=== PATIENT | male | born 1970 ===

== ENCOUNTER 2025-03-22 08:09 | Outpatient (CLI) | payer OTHER ==
[2025-03-22] MEDS ORDERED: COZAAR25 MG (09:32)
[2025-03-22] MEDS ORDERED: AMLODIPINE-OLM1 EAC2 (09:32)
[2025-03-22] MEDS ORDERED: EZALLOR SPRINKL20 MG (09:33)
[2025-03-22] MEDS ORDERED: SYNTHROID125 MCG PO (09:33)
[2025-03-22 09:44] LABS: BASO % 1.3 % (0.1-1.2); EOS # 0.17 (0.04-0.54); EOS % 4.3 % (0.7-7.0); HEMATOCRIT 43.3 % (40.1-51.0); HEMOGLOBIN 14.8 g/dL (13.7-17.5); LYMPH # 1.59 (1.18-3.74); LYMPH % 39.8 % (19.3-53.1); MEAN CORPUSCULAR HEMOGLOBIN 28.8 pg (25.6-32.2); MONO # 0.41 (0.24-0.82); MONO % 10.3 % (4.7-12.5); NEUT # 1.76 (1.56-6.13); PLATELET COUNT 172 K/uL (163-369); RED BLOOD COUNT 5.14 M/uL (4.63-6.08); RED CELL DISTRIBUTION WIDTH 12.6 % (11.6-14.4)
[2025-03-22 09:56] LABS: PH,URINE 6.5 (5.0-8.0); URINE APPEARANCE Clear; URINE BILIRRUBIN Negative (NEGATIVE); URINE BLOOD Negative; URINE COLOR Yellow; URINE GLUCOSE Negative (NEGATIVE); URINE KETONE Negative (NEGATIVE); URINE LEUKOCYTE Negative; URINE NITRATE Negative; URINE PROTEIN Negative (NEGATIVE); URINE UROBILINOGEN 0.2 E.U./dl
[2025-03-22 10:00] LABS: URINE BACTERIA 4.8 uL (0.0-1933)
[2025-03-22 10:31] LABS: ALBUMIN 4.1 gm/dL (3.4-5.0); BILIRUBIN TOTAL 0.73 mg/dL (0.3-1.2); CALCIUM 9.1 mg/dL (8.5-10.1); CHOL HDL RATIO 3.4 (0-5.0); CREATININE SERUM 1.01 mg/dL (0.70-1.30); GFR 77.27; GLOBULINA 3.5 G/DL (2.4-3.5); POTASSIUM 3.49 mEq/L (3.5-5.1); PROSTATIC SPECIFIC ANTIGEN 0.265 NG/ML (0.010-4.00); T4 FREE 1.23 NG/ML (0.76-1.46); T4 TOTAL 12.07 UG/DL (4.5-12.1); TOTAL PROTEIN 7.6 gm/dL (6.4-8.2); TSH 2.63 uIU/mL (0.358-3.74)
[2025-03-22 10:43] LABS: URINE WBC 1.1 uL (0.0-23.2)
== END 2025-03-22 08:10 | disposition home or self-care (01) ==
LOC: LAB 08:09
PROVIDERS: ATTEND Internal Medicine
DX: E03.8 Other specified hypothyroidism (principal); E78.5 Hyperlipidemia, unspecified; E11.65 Type 2 diabetes mellitus with hyperglycemia; I10 Essential (primary) hypertension; E78.2 Mixed hyperlipidemia

== ENCOUNTER → 2025-03-30 | Day surgery (SDC) | payer OTHER ==
[2025-03-22 10:21] LABS: INR 1.06; PARTIAL THROMBOPLASTIN TIME 28.8 SECONDS (22.0-34.0); PROTHROMBIN TIME 11.5 SECONDS (9.0-11.5)
[~2025-03-30] MED LIST: AMLODIPINE-OLM1 EAC2; BUPIVACAINE HCL/MPF 0.5% 30ML VIAL ONE; CEFAZOLIN SODIUM 1,000 MG VIAL ONE; COZAAR25 MG; EZALLOR SPRINKL20 MG; LIDOCAINE HCL 1%/EPINEPHRINE 20ML VIAL IJ ONE; SUGAMMADEX SODIUM 200 MG/2 ML VIAL IV ONE; SYNTHROID125 MCG PO
== END | disposition home or self-care (01) ==
LOC: ADM 03-22 08:00 → CIR.AMB 06:00
PROVIDERS: ATTEND Surgery
DX: K43.6 Other and unspecified ventral hernia with obstruction, without gangrene (principal); Z91.013 Allergy to seafood
CPT/HCPCS: 49594; C1781